=== PATIENT | male | born 2000 | race Caucasian/White ===

== ENCOUNTER 2022-10-28 16:09 | Emergency (ER) | payer MEDICAID ==
[~2022-10-28] VITALS: Ht 172.7 cm; Wt 68.0 kg
[2022-10-28] MEDS ORDERED: OXYCODONE HCL5 MG PO (17:17)
[2022-10-28] MEDS ORDERED: METHOCARBAMOL500 MG PO (17:17)
[2022-10-28] MEDS ORDERED: ELIQUIS2.5 MG PO (17:18)
[2022-10-28] MEDS ORDERED: HYDROCODON-ACE1 EA11 PO (18:24)
[2022-10-28 18:29] VITALS: BP 121/78
== END 2022-10-28 18:30 | disposition home or self-care (01) ==
LOC: ED 16:09
DX: S79.09 Other physeal fracture of upper end of femur (principal); W34.00XD Accidental discharge from unspecified firearms or gun, subsequent encounter; Z88.0 Allergy status to penicillin; Z79.899 Other long term (current) drug therapy; Z79.01 Long term (current) use of anticoagulants
CPT/HCPCS: 73552; 99283 25